=== PATIENT | male | born 1995 | race Caucasian/White ===

== ENCOUNTER 2024-11-26 08:13 | Emergency (ER) | payer OTHER, SELFPAY ==
[2024-11-26] VITALS (7 sets, daily range): BP systolic 118–141; BP diastolic 67–83; PULSE 54–78; RESP 18–20; TEMP 36.8–36.9; O2SAT 98–99; BMI 22.4
--- NOTE | 2024-11-26 08:25 | ED.GENADULT ---
HPI - General Adult General Chief complaint: Extremity Injury, Upper Stated complaint: shoulder injury Time Seen by Provider: 11/26/24 08:25 Source: patient, RN notes reviewed and old records reviewed Mode of arrival: Ambulatory Limitations: no limitations History of Present Illness HPI narrative: 28-year-old male no reported medical issues presents with complaint of right shoulder pain. Patient was skiing 2 days ago fell with his right arm sort of overhead an extended. Has had pain particularly the ACT anterior region since then. He states it is difficult for him to move his arm up above 45? in his painful with abduction and extension. Patient denies any other injuries to his hand, wrist forearm or elbow. States he maybe has a little bit of tingling but denies any sensation changes otherwise. Denies any weakness. Denies any other injuries. He was helmeted. He then proceeded to ski yesterday but not using his arm holding it in sort of a sling position. Patient did not have any additional trauma to the arm but has been persistently painful he notices it mostly at nighttime compared to daytime. Did have leave for his pain. Denies any other daily medications, no daily prescriptions. Denies any major surgeries. No known drug allergies. No regular tobacco. Patient lives in [place]. He does not currently have a primary care physician. Review of Systems Review of Systems ROS Unobtainable: All systems reviewed & are unremarkable except as noted in HPI and below Patient History Social History Smoking Status: Never smoker Exam Narrative Exam Narrative: GENERAL: Alert and oriented x three, male in mild distress HEENT: Head normocephalic, atraumatic, EOMI, pupils reactive, face symmetric, moist mucous membranes NECK: Supple, full range of motion CARDIOVASCULAR: Regular rate and rhythm without murmurs, rubs or gallops. RESPIRATORY: Breath sounds equal bilaterally, no wheezes rales or rhonchi. ABDOMEN: Soft, nontender. Normoactive bowel sounds all 4 quadrants. No guarding or rebound, rigidity, no mass : No CVA tenderness EXTREMITIES: Decreased range of motion of the right shoulder but I am able to flex and extend past 90? passively, patient does not have any bony tenderness on exam, no obvious deformity, no warmth, no swelling. No ecchymosis. Patient does not have any bony tenderness throughout the rest of his arm, elbow, forearm, wrist or fingers. Has equal kiln remover. Normal sensation. 2+ radial pulse. No clubbing or edema. Neurovascularly intact NEUROLOGICAL: Cranial nerves II through XII grossly intact. Moving all extremities SKIN: Warm, dry, no petechiae, no rashes or lesions. Initial Vital Signs Initial Vital Signs: Vital Signs Pulse Rate 69 11/26/24 08:19 Blood Pressure 141/83 H 11/26/24 08:19 Pulse Oximetry 99 11/26/24 08:19 Course Orders Ordered: ED Orders 11/26/24 08:25 XR shoulder RT min 2V Stat Vital Signs Vital signs: Vital Signs - 8 hr 11/26/24 08:19 11/26/24 08:19 11/26/24 08:25 Temperature 98.5 F Pulse Rate 69 67 Pulse Rate [Right Radial] Respiratory Rate 20 Blood Pressure 141/83 H 141/83 H Pulse Oximetry 99 99 Oxygen Delivery Method Room Air 11/26/24 08:30 11/26/24 08:30 11/26/24 08:47 Temperature Pulse Rate 62 63 Pulse Rate [Right Radial] Respiratory Rate Blood Pressure 119/70 Pulse Oximetry 98 99 Oxygen Delivery Method 11/26/24 08:47 11/26/24 09:00 11/26/24 09:00 Temperature Pulse Rate 54 L Pulse Rate [Right Radial] Respiratory Rate Blood Pressure 134/75 118/67 Pulse Oximetry 99 Oxygen Delivery Method 11/26/24 09:32 11/26/24 09:41 Temperature 98.2 F Pulse Rate 76 Pulse Rate [Right Radial] 78 Respiratory Rate 18 Blood Pressure 141/72 H Pulse Oximetry 99 Oxygen Delivery Method Room Air Medical Decision Making Imaging Data Extremity x-ray #1: Radiologist's Impression: [address] [address] XRay Report Signed Patient: Steven Preston MR#: [id number] : 1995 Acct:[id number] Age/Sex: 28 / M Date of Service: 11/26/24 Loc: ED Accession Number: [id number] Procedure: XR shoulder RT min 2V Ordering Provider: Delaney Carlos D.O. PROCEDURE: XR SHOULDER RT MIN 2V INDICATIONS: fall while skiing with limited range of motion TECHNIQUE: 3 views of the shoulder were acquired. COMPARISON: None. FINDINGS: Bones: No fractures or dislocations. No suspicious bony lesions. Visualized ribs appear intact. Soft tissues: No suspicious soft tissue calcifications. IMPRESSION: No acute bony abnormality. Dictated by: Gilson John M.D. on 11/26/2024 at 9:25 Approved by: Gilson John M.D. on 11/26/2024 at 9:25 [facility] Narrative Medical decision making narrative: 28-year-old male with injury with his arm extended has pain with abduction. Patient does not have obvious deformity nontender to the bone. Suspect possible dislocation but less likely clavicle fracture,, AC joint tear, rotator cuff tear versus other internal derangement, Shoulder x-ray, no fx or acute bony change. Patient was placed in a sling. Can continue with the acetaminophen and/ibuprofen or other NSAIDs for pain management. Patient was referred to follow up with the Orthopedic surgery. Discussed findings, need for follow up. All questions answered. Discharge Plan Departure Patient Disposition: Home Clinical Impression: Injury of right shoulder Instructions: DI for Shoulder Pain Activity Restrictions/Additional Instructions: Follow up with the orthopedic surgery, please call today to set up a follow up appointment. Your imaging shows no dislocation or fracture, you likely have an injury to the tendons, ligaments or muscle of the shoulder she would follow-up with orthopedic surgery if your symptoms are not improving over the next week and you are not having any increase in movement. You can take acetaminophen up to a 1000 mg every 6 hours and/or ibuprofen up to 600 mg every 6 hours as needed for pain. I do recommend that you move your shoulder through gentle range of motion several times daily to prevent frozen shoulder but do not force it to move. Splint Care: Keep splint clean and dry. Elevated affected body part to decrease swelling. OK to use ice pack on the affected body part. Use for 15-20 minutes each time, for 5-6x per day. If you develop worsening pain, numbness, tingling, discoloration of the affected body part, adjust the sling and either see your doctor for an urgent re-assessment, or return to the Emergency Department. Return to the Emergency Department for any new or worsening symptoms. Referrals: Cely Lockett MD [Physician] - Stand Alone Forms: Patient Portal/API/Survey
== END 2024-11-26 09:42 | disposition home or self-care (01) ==
PROVIDERS: Emergency Provider Emergency Medicine
DX: S49.91XA Unspecified injury of right shoulder and upper arm, initial encounter (principal); W18.30XA Fall on same level, unspecified, initial encounter; Y93.23 Activity, snow (alpine) (downhill) skiing, snowboarding, sledding, tobogganing and snow tubing
CPT/HCPCS: 73030; 99283